=== PATIENT | male | born 1960 | race Caucasian/White ===

== ENCOUNTER 2018-08-27 23:11 | Emergency (ER) | payer MEDICARE ==
--- NOTE | 2018-08-27 23:39 | Emergency Department Record ---
History of Present Illness - General Chief Complaint: Back Pain/Injury Stated Complaint: BACK PAIN Time Seen by Provider: 08/27/18 23:16 Source: Patient, EMS Mode of Arrival: EMS Limitations: No limitations - History of Present Illness Initial Comments: 58 yo male presents to ED via EMS for evaluation of low back pain symptoms radiating down the left buttock. Patient reports a fall 2 months ago with gradual improvement in his back pain symptoms with intermittent spasms. Patient denies lower extremity weakness or urinary retention symptoms, denies numbness/tingling symptoms. Patient reports that he was lifting leaves into his truck this evening prior to his pain symptoms beginning. Patient laid down upstairs for approximately 6 hours, was unable to get yup without significant pain symptoms. Patient received Fentanyl 200 mcg IV prior to arrival with significantly improvement in his symptoms. MD Complaint: Back pain Onset/Timin -: Hour(s) Similar Symptoms Previously: Yes Radiation: Left leg Severity scale (1-10): 5 Quality: Burning Consistency: Constant Improves With: Immobilization, Medication Worsens With: Movement Associated Symptoms: Denies other symptoms Treatment Prior to Arrival Comment:: pt was given 200 mcg of fentynal and 4 mg of zofran prior to arival - Related Data Previous Rx's Medication Instructions Recorded Diazepam [Valium] 5 mg PO Q8H PRN #9 tab 08/28/18 Ibuprofen [Motrin] 800 mg PO Q6H PRN #30 tab 08/28/18 Allergies Allergy/AdvReac Type Severity Reaction Status Date / Time No Known Drug Allergies Allergy Verified 08/27/18 23:24 Travel Screening - Travel/Exposure Within Last 30 Days Have you traveled within the last 30 days?: No Review of Systems Constitutional: Denies: Chills, Fever, Malaise, Night sweats Eyes: Denies: Eye discharge, Eye pain ENT: Denies: Congestion, Ear pain, Epistaxis Respiratory: Denies: Cough, Dyspnea Cardiovascular: Denies: Chest pain, Dyspnea on exertion Endocrine: Denies: Fatigue, Heat or cold intolerance Gastrointestinal: Denies: Abdominal pain, Nausea, Vomiting Genitourinary: Denies: Incontinence, Retention Musculoskeletal: Reports: Back pain Skin: Denies: Bruising, Change in color Neurological: Reports: Abnormal gait (due to pain). Denies: Confusion, Headache , Numbness, Seizure Psychiatric: Denies: Anxiety Hematological/Lymphatic: Denies: Anemia, Blood Clots Past Medical History - SOCIAL HISTORY Smoking Status: Current every day smoker Alcohol Use: Occasional Alcohol Use Comment: drank 2 beers tonight Drug Use: Occasional Drug Use Detail:: Marijuana - RESPIRATORY Hx Respiratory Disorders: No Hx Bronchitis: Yes - CARDIOVASCULAR Hx Cardio Disorders: Yes Hx Heart Attack: Yes Hx Hypertension: Yes - NEURO Hx Neuro Disorders: No - GI Hx GI Disorders: Yes Hx Liver Disease: Yes - Hx Genitourinary Disorders: No - ENDOCRINE Hx Endocrine Disorders: No - MUSCULOSKELETAL Hx Musculoskeletal Disorders: Yes - PSYCH Hx Psych Problems: No - HEMATOLOGY/ONCOLOGY Hx Hematology/Oncology Disorders: Yes Hx Cancer: Yes (colon) Family Medical History Any Significant Family History?: No Physical Exam - General General Appearance: Alert, Oriented x3, Cooperative, Mild distress, Other (Able to sit up, stand to provide UA sample following fentanyl pre-hospital.) Limitations: No limitations - Head Head exam: Atraumatic, Normocephalic, Normal inspection Head exam detail: negative: Abrasion, Contusion, Cifuentes's sign, General tenderness, Hematoma, Laceration - Eye Eye exam: Normal appearance. negative: Conjunctival injection, Periorbital swelling, Periorbital tenderness, Scleral icterus - ENT Ear exam: negative: Auricular hematoma, Auricular trauma Nasal Exam: negative: Active bleeding, Discharge, Dried blood, Foreign body Mouth exam: negative: Drooling, Laceration, Muffled voice, Tongue elevation - Neck Neck exam: Normal inspection. negative: Meningismus, Tenderness - Respiratory Respiratory exam: Normal lung sounds bilaterally. negative: Rales, Respiratory distress, Rhonchi, Stridor - Cardiovascular Cardiovascular Exam: Regular rate, Normal rhythm, Normal heart sounds - GI/Abdominal GI/Abdominal exam: Soft. negative: Rebound, Rigid, Tenderness - Rectal Rectal exam: Deferred - exam: Deferred - Extremities Extremities exam: Normal inspection. negative: Calf tenderness, Pedal edema, Tenderness - Back Back exam: Reports: Paraspinal tenderness (mild). Denies: CVA tenderness (R), CVA tenderness (L) - Neurological Neurological exam: Alert, Normal gait, Oriented X3 - Psychiatric Psychiatric exam: Normal affect, Normal mood - Skin Skin exam: Normal color. negative: Abrasion Type of lesion: negative: abrasion Course Vital Signs 08/27/18 23:16 Temperature 97.3 F L Pulse Rate 70 Respiratory 18 Rate Blood Pressure 117/56 Pulse Ox 95 - Reevaluation(s) Reevaluation #1: 08/28/18 00:15 Laboratory studies were reviewed and are grossly unremarkable for an acute process. Patient has returned from CT imaging, resting comfortably on re-examination. Reevaluation #2: 08/28/18 01:31 CT Abdomen and Pelvis: Previous partial colectomy with nodular calicficaltion along the proximal suture line, ? significance. ? tumor with mucinous calcification? recommend follow-up study. Previous partial hepatectomy, no recurrent tumor identified. No evidence hydroureter/hydronephrosis Patient was updated on all results, reports that his pain symptoms are still improved however just beginning to return. Patient has no clinical features or history to suggest acute spinal cord compression syndrome on examination. Patient appears stable for discharge with Valium and Ibuprofen 800 mg as directed for pain symptoms. Patient is in agreement with the plan of care as discussed. Medical Decision Making - Lab Data Result diagrams: 08/27/18 23:47 08/27/18 23:47 Disposition Disposition: Discharge Clinical Impression: Back pain Qualifiers: Back pain location: low back pain Chronicity: acute Back pain laterality: left Sciatica presence: with sciatica Sciatica laterality: sciatica of left side Qualified Code(s): M54.42 - Lumbago with sciatica, left side Disposition: Home, Self-Care Condition: (2) Stable Instructions: Low Back Strain (ED) Additional Instructions: Return to ED if your symptoms worsen or if you have any concerns. Ibuprofen and Valium as directed. Follow-up with your family doctor in 3-5 days as directed. Prescriptions: Diazepam [Valium] 5 mg PO Q8H PRN #9 tab PRN Reason: Spasms Ibuprofen [Motrin] 800 mg PO Q6H PRN #30 tab PRN Reason: Pain - Mild To Moderate (1-7) Forms: Patient Portal Access Time of Disposition: 01:38 Quality - Quality Measures Quality Measures: N/A - Blood Pressure Screening Does Patient Have Any of the Following: No Blood Pressure Classification: Normal BP Reading Systolic Measurement: 117 Diastolic Measurement: 56 Screening for High Blood Pressure: < Normal BP, F/U Not Required > [G8783]
[2018-08-27 23:56] LABS: BASO % 0.1 % (0-6); EOS % 0.7 % (0-6); GRAN % 60.4 % (47-80); HEMATOCRIT 40.6 % (42.0-52.0); HEMOGLOBIN 13.2 gm/dl (14.0-18.0); LYMPH % 31.6 % (16-45); MEAN CELL VOLUME 91.9 fl (81-97); MEAN CORPUSCULAR HGB CONC 32.5 g/dl (32-36); MEAN PLATELET VOLUME 8.8 fl (7.4-10.4); MONO % 7.2 % (0-9); PLATELET COUNT 231 K/uL (130-400); RED BLOOD COUNT 4.42 M/uL (4.40-5.70); RED CELL DISTRIBUTION WIDTH 13.9 % (11.5-14.5); URINE APPEARANCE CLEAR; URINE BILIRUBIN NEGATIVE (NEGATIVE); URINE BLOOD NEGATIVE (NEGATIVE); URINE COLOR YELLOW; URINE GLUCOSE (UA) NEGATIVE (NEGATIVE); URINE KETONE TRACE (NEGATIVE); URINE LEUKOCYTE ESTERASE NEGATIVE (NEGATIVE); URINE NITRITE NEGATIVE (NEGATIVE); URINE PROTEIN NEGATIVE (NEGATIVE); WHITE BLOOD COUNT W/O DIFF 10.7 K/uL (4.2-12.2)
[2018-08-27 23:57] LABS: MEAN CORPUSCULAR HEMOGLOBIN 29.8 pg (27-33)
[2018-08-28 00:05] LABS: BLOOD UREA NITROGEN 17 mg/dL (6-20)
[2018-08-28 00:06] LABS: CREATININE 0.9 mg/dL (0.7-1.2); EST GLOMERULAR FILTRATION RATE > 60 mL/min; TOTAL PROTEIN 6.6 g/dL (6.6-8.7)
[2018-08-28 00:08] LABS: GLUCOSE,RANDOM 130 mg/dL (74-109)
[2018-08-28 00:11] LABS: ALB/GLOB RATIO 1.6 (1.1-1.8); ALBUMIN 4.1 g/dL (4.0-5.0); ALKALINE PHOSPHATASE 50 U/L (40-129); ALT/SGPT 19 U/L (<41); AST/SGOT 20 U/L (10.0-50.0)
[2018-08-28] MEDS ORDERED: DIAZEPAM 5 MG TABLET PO ONE (01:38)
== END 2018-08-28 01:59 | disposition home or self-care (01) ==
LOC: ER 23:11
DX: M54.42 Lumbago with sciatica, left side (principal); I10 Essential (primary) hypertension; I25.2 Old myocardial infarction; F17.210 Nicotine dependence, cigarettes, uncomplicated
CPT/HCPCS: 99283; 99284; 85025; 80053; 81003; 74176; G0480; J3490; 80320

== ENCOUNTER 2019-10-02 09:03 | Emergency (ER) | payer MEDICARE ==
--- NOTE | 2019-10-02 09:11 | Emergency Department Record ---
History of Present Illness - General Stated Complaint: CHEST PAIN Time Seen by Provider: 10/02/19 09:05 Source: Patient Mode of Arrival: Ambulatory Limitations: No limitations - History of Present Illness Initial Comments: 59 yo male presents with chest pain, sweating, some shortness of breath. The onset was a little before 8am. He states the pain does radiate to the left arm. He states it also radiates to the jaw. He reports a history of [place] in the past with cardiac arrest about 8 years ago. He has a coronary stent. He took nitro with partial relief. No other pain in the last few weeks. Dr Posada is his consultant rn with [facility]. No leg pain. No back pain. He did take a nitro at home with some partial relief of the discomfort. No other major recent changes in his health. MD Complaint: Chest pain -: Hour(s) Onset: During rest Pain Location: Left chest Pain Radiation: LUE Severity: Moderate Quality: Similar to prior [place] Consistency: Constant Improves With: Nitroglycerin Worsens With: Nothing Context: Other Anginal Symptoms: Dyspnea, Nausea Other Symptoms: Acid taste in mouth (tingling) Treatments Prior to Arrival: Aspirin (81mg) - Related Data Home Medications Medication Instructions Recorded Confirmed Last Taken Carvedilol [Coreg] 10/02/19 Unknown Ezetimibe 1 tab PO QHS 10/02/19 10/02/19 10/01/19 Omeprazole [Prilosec] 20 mg PO DAILY 10/02/19 10/02/19 10/02/19 Allergies Allergy/AdvReac Type Severity Reaction Status Date / Time No Known Drug Allergies Allergy Verified 10/02/19 09:39 Review of Systems Constitutional: Denies: Chills, Fever, Malaise, Weakness Eyes: Denies: Eye discharge ENT: Denies: Congestion, Throat pain Respiratory: Reports: Dyspnea. Denies: Cough, Hemoptysis, Stridor, Wheezes Cardiovascular: Reports: Chest pain. Denies: Edema, Palpitations, Syncope Endocrine: Denies: Fatigue, Polydipsia, Polyuria Gastrointestinal: Reports: Nausea. Denies: Abdominal pain, Diarrhea, Vomiting Genitourinary: Denies: Dysuria, Frequency, Hematuria Musculoskeletal: Denies: Arthralgia, Back pain, Myalgia, Neck pain Skin: Denies: Bruising, Change in color, Rash Neurological: Denies: Confusion, Headache Psychiatric: Denies: Anxiety Hematological/Lymphatic: Denies: Easy bleeding, Easy bruising Past Medical History - SOCIAL HISTORY Smoking Status: Current every day smoker Alcohol Use Comment: drank 2 beers tonight Drug Use: Occasional Drug Use Detail:: Marijuana - RESPIRATORY Hx Respiratory Disorders: No Hx Bronchitis: Yes - CARDIOVASCULAR Hx Cardio Disorders: Yes Hx Heart Attack: Yes Hx Hypertension: Yes - NEURO Hx Neuro Disorders: No - GI Hx GI Disorders: Yes Hx Liver Disease: Yes - Hx Genitourinary Disorders: No - ENDOCRINE Hx Endocrine Disorders: No - MUSCULOSKELETAL Hx Musculoskeletal Disorders: Yes - PSYCH Hx Psych Problems: No - HEMATOLOGY/ONCOLOGY Hx Hematology/Oncology Disorders: Yes Hx Cancer: Yes (colon) Physical Exam - General General Appearance: Alert, Oriented x3, Cooperative, No acute distress Limitations: No limitations - Head Head exam: Atraumatic, Normal inspection - Eye Eye exam: Normal appearance. negative: Conjunctival injection - ENT ENT exam: Normal exam, Mucous membranes moist Ear exam: Normal external inspection Nasal Exam: Normal inspection Mouth exam: Normal external inspection - Neck Neck exam: Normal inspection - Respiratory Respiratory exam: Normal lung sounds bilaterally. negative: Respiratory distress - Cardiovascular Cardiovascular Exam: Regular rate, Normal rhythm, Normal heart sounds. negative: Diastolic murmur, Systolic murmur, Tachycardia Peripheral Pulses: 2+: Radial (R), Radial (L) - GI/Abdominal GI/Abdominal exam: Soft. negative: Tenderness - Rectal Rectal exam: Deferred - exam: Deferred - Extremities Extremities exam: Normal inspection. negative: Calf tenderness, Pedal edema, Tenderness - Back Back exam: Denies: CVA tenderness (R), CVA tenderness (L) - Neurological Neurological exam: Alert, Oriented X3 - Psychiatric Psychiatric exam: Normal affect, Normal mood - Skin Skin exam: Dry, Intact, Normal color, Warm Course - Reevaluation(s) Reevaluation #1: 10/02/19 09:11 EKG #1: 09:04 Rate: 61 Rhythm: sinus [place]: L Intervals: normal ST segments: no acute abnormalities Prior: 01/11/09 10/02/19 10:06 EKG #2: 10:01 Rate: 54 Rhythm: sinus michelle [place]: L Intervals: normal ST segments: no acute abnormalities 10/02/19 10:07 The Labs were reviewed No acute abnormalities on the CBC,BMP or Troponin After two nitro the discomfort is nearly gone No changes on 2nd EKG 10/02/19 10:24 [facility] at [facility] called to discuss with prior authorization nurse cardiology 10/02/19 10:38 Dr Bolaños of [facility] cardiology accepts the patient for transfer for further work up Medical Decision Making - Lab Data Result diagrams: 10/02/19 09:20 10/02/19 09:20 Disposition Disposition: Transfer Clinical Impression: Chest pain Qualifiers: Chest pain type: unspecified Qualified Code(s): R07.9 - Chest pain, unspecified Disposition: Acute Care Hospital Transfer Transfer To: [facility] Reason For Transfer: Chest pain Accepting Physician: Miky Time Discussed w/Accepting Physician: 10:39 Condition: (2) Stable Time of Disposition: 10:39 Quality - Quality Measures Quality Measures: N/A - Blood Pressure Screening Does Patient Have Any of the Following: Active Dx of HTN Blood Pressure Classification: Pre-Hypertensive BP Reading Systolic Measurement: 123 Diastolic Measurement: 80 Screening for High Blood Pressure: Patient Exclusion, Hx of HTN [G9744]
[2019-10-02] MEDS: ASPIRIN 81 MG CHEWABLE TABLET PO ONE (09:17)
[2019-10-02] MEDS: 0.9 % SODIUM CHLORIDE 1000ML 1,000 ML IV ONE (09:20)
[2019-10-02] MEDS: NITROGLYCERIN 0.4MG SL TABLET #25 BTL SL PRN (09:37)
--- NOTE | 2019-10-02 09:45 | RADIOLOGY REPORT ---
EXAMINATION: Single View Chest EXAM DATE: 10/02/2019 9:36 AM TECHNIQUE: Single view chest INDICATION: chest pain COMPARISON: None. ENCOUNTER: Not applicable FINDINGS: The heart, mediastinum, and pulmonary vasculature are normal. No lung consolidation or pleural effu sions are present. No pneumothorax is present. Left portacatheter present with the tip at the cavoat rial junction. No pneumothorax. IMPRESSION: No acute process. Dictated by: Hansel Perry DO on 10/02/2019 9:42 AM. .
[2019-10-02 09:47] LABS: ABSOLUTE NEUTROPHIL COUNT 2.79; BASO % 0.3 % (0-6); EOS % 4.8 % (0-6); GRAN % 44.2 % (47-80); HEMATOCRIT 43.9 % (42.0-52.0); HEMOGLOBIN 14.2 gm/dl (14.0-18.0); LYMPH % 41.8 % (16-45); MEAN CELL VOLUME 91.5 fl (81-97); MEAN CORPUSCULAR HEMOGLOBIN 29.6 pg (27-33); MEAN CORPUSCULAR HGB CONC 32.3 g/dl (32-36); MEAN PLATELET VOLUME 9.4 fl (7.4-10.4); MONO % 8.9 % (0-9); PLATELET COUNT 235 K/uL (130-400); WHITE BLOOD COUNT W/O DIFF 6.3 K/uL (4.2-12.2)
[2019-10-02] MEDS ORDERED: MORPHINE SULFATE 5 MG/ML VIAL IVP ONE (09:48)
[2019-10-02 09:57] LABS: BLOOD UREA NITROGEN 9 mg/dL (6-20); CREATININE 0.8 mg/dL (0.7-1.2); EST GLOMERULAR FILTRATION RATE > 60 mL/min
[2019-10-02 10:00] LABS: GLUCOSE,RANDOM 77 mg/dL (74-109)
[2019-10-02 10:01] LABS: PARTIAL THROMBOPLASTIN TIME 25.7 SECONDS (24.5-39.1); PROTHROMBIN TIME (PATIENT) 9.8 SECONDS (9.5-12.1)
== END 2019-10-02 12:56 | disposition short-term general hospital (02) ==
LOC: ER 09:03
DX: R07.9 Chest pain, unspecified (principal); M54.2 Cervicalgia; R06.02 Shortness of breath; R11.0 Nausea; I10 Essential (primary) hypertension; I25.2 Old myocardial infarction; F17.210 Nicotine dependence, cigarettes, uncomplicated; Z95.5 Presence of coronary angioplasty implant and graft; Z82.41 Family history of sudden cardiac death
CPT/HCPCS: 71045; 80048; 84484; 85025; 85610; 85730; 93005; 93010; 99285